=== PATIENT | female | born 1990 | race Caucasian/White ===

== ENCOUNTER 2018-03-30 13:06 | Emergency (ER) | END 2018-03-30 15:10 | disposition left against medical advice (07) ==

== ENCOUNTER 2018-11-11 14:11 | Inpatient (IN) | payer OTHER ==
[~2018-11-11] VITALS: Ht 157.5 cm; Wt 74.4 kg
[~2018-11-11 14:11] MED LIST: FOLI0.4T2 PO; PREN1TAB71 PO
[2018-11-17] MEDS ORDERED: OXYTOCIN 30 UNITS/LR 500 ML IV PRN (14:30)
[2018-11-17] MEDS ORDERED: LIDOCAINE 1% (MPF) 30 ML INJ INJ PRN (14:30)
[2018-11-17] MEDS ORDERED: METHYLERGONOVINE 0.2 MG INJ IM PRN (14:30)
[2018-11-17] MEDS ORDERED: MISOPROSTOL 200 MCG TAB PR PRN (14:30)
[2018-11-17] MEDS ORDERED: BUTORPHANOL 2 MG INJ IV PRN (14:30)
[2018-11-17] MEDS ORDERED: IBUPROFEN 600 MG TAB PO PRN (14:30)
[2018-11-17] MEDS ORDERED: OXYTOCIN 30 UNITS/LR 500 ML IV SCH ×2 (14:30)
[2018-11-17] MEDS ORDERED: OXYCODONE/ACETAMINOPHEN (5/325) TAB PO PRN (14:30)
[2018-11-17] MEDS ORDERED: CARBOPROST 250 MCG INJ IM PRN (14:30)
[2018-11-17 15:13] VITALS: Ht 157.5 cm; Wt 74.4 kg
[2018-11-17] MEDS: LACTATED RINGER'S 1,000 ML IV SCH (15:15)
[2018-11-17] MEDS ORDERED: CLINDAMYCIN 900 MG/D5W (PMX) 50 ML IVPB SCH (16:00)
[2018-11-17] MEDS: MISOPROSTOL 50 MCG CAPSULE PO SCH ×3 (16:41→21:00)
[2018-11-17] MEDS: VANCOMYCIN 1 GM (PMX) 250 ML IVPB SCH (17:44)
[2018-11-17] MEDS ORDERED: MINERAL OIL LIGHT 10 ML VIAL TOP PRN (20:00)
[2018-11-18] MEDS: LACTATED RINGER'S 1,000 ML IV SCH ×4 (00:57→14:47)
[2018-11-18] MEDS: VANCOMYCIN 1 GM (PMX) 250 ML IVPB SCH ×2 (05:07→17:00)
[2018-11-18] MEDS ORDERED: OXYTOCIN 30 UNITS/LR 500 ML IV SCH ×2 (05:30→17:35)
[2018-11-18] MEDS ORDERED: FENTAnyl 2MCG/ML-ROPIV 0.2% 100 ML ONE (12:15)
--- NOTE | 2018-11-18 12:24 | PREAC ---
Date/Time of Note Date/Time of Note DATE: 11/18/18 TIME: 12:23 Anesthesia Eval and Record Evaluation Time Pre-Procedure Interview DATE: 11/18/18 TIME: 12:23 Age 28 Sex female NPO: 8 hrs Preoperative diagnosis labor pain Planned procedure labor Epidural Past Medical History Past Medical History: Includes Heme: Anemia : : (5), Para: (3), Gestational age: (40) Surgery & Anesthesia Issues No known issue Meds Anticoagulation: No Beta Raimundo within 24 hr: No Reason Beta Raimundo not given: Pt. not on B-Raimundo Reported Medications Folic Acid* (Folic Acid*) 0.4 Mg Tablet, 0.4 MG PO DAILY, TAB 11/03/18 Vit No.130/Iron/FA ( Tablet) 1 Each Tablet, 1 EACH PO d 11/03/18 Current Medications Lactated Ringer's 1,000 ml @ 125 mls/hr Q8H IV Last administered on 11/18/18at 12:15; Admin Dose 125 MLS/HR; Start 11/17/18 at 14:27 Butorphanol Tartrate (Stadol) 2 mg Q2H PRN IV .PAIN; Start 11/17/18 at 14:30 Lidocaine (Xylocaine 1% (Mpf)) 30 ml ONCE PRN INJ .EPISIOTOMY; Start 11/17/18 at 14:30 Oxytocin/Lactated Ringer's 500 ml @ 500 mls/hr ONCE POST IV ; Start 11/17/18 at 14:30 Oxytocin/Lactated Ringer's 500 ml @ 125 mls/hr POST IV ; Start 11/17/18 at 14:30 Ibuprofen (Motrin) 600 mg ONCE PRN PO .PAIN 1-5; Start 11/17/18 at 14:30 Oxycodone/ Acetaminophen (Percocet (5/ 325)) 2 tab ONCE PRN PO .PAIN 6-10; Start 11/17/18 at 14:30 Oxytocin/Lactated Ringer's 500 ml @ 0 mls/hr ONCE PRN IV .VAGINAL BLEEDING; Start 11/17/18 at 14:30 Methylergonovine Maleate (Methergine) 0.2 mg ONCE PRN IM .VAGINAL BLEEDING; Start 11/17/18 at 14:30 Carboprost Tromethamine (Hemabate) 250 mcg ONCE PRN IM .VAGINAL BLEEDING; Start 11/17/18 at 14:30 Misoprostol (Cytotec) 1,000 mcg ONCE PRN LA .VAGINAL BLEEDING; Start 11/17/18 at 14:30 Vancomycin HCl 250 ml @ 125 mls/hr Q12H IVPB Last administered on 11/18/18at 05:07; Admin Dose 125 MLS/HR; Start 11/17/18 at 17:00 Mineral Oil (Muri-Lube) 10 ml ONCE PRN TOP DELIVERY; Start 11/17/18 at 20:00; Stop 11/18/18 at 19:59 Oxytocin/Lactated Ringer's 500 ml @ 0 mls/hr FOR AUGMENTATION IV Last ad ministered on 11/18/18at 05:50; Admin Dose 2 MLS/HR; Start 11/18/18 at 05:30 Meds reviewed: Yes Allergies Coded Allergies: No Known Drug Allergy (Verified Allergy, Unknown, 03/30/18) Penicillins (Verified Allergy, Unknown, 11/03/18) Allergies Reviewed: Yes Labs/Studies Labs Reviewed: Reviewed by anesthesiologist Result Diagram: 11/17/18 1500 Laboratory Tests 11/17/18 15:00 Blood Bank Test 11/17/18 15:00 Antibody Screen NEGATIVE Blood Type O POSITIVE Rh Immune Globulin Candidate NO test: Positive Studies: ECG (n/a), CXR (n/a) Pre-procedure Exam Airway: Adequate mouth opening, Adequate thyromental dist Mallampati: Mallampati II Teeth: Normal Lung: Normal Heart: Normal ASA Physical Status ASA physical status: 2 Emergency: None Planned Anesthetic Neuraxial: Epidural Planned Pain Management Epidural Pre-operative Attestations Prior to commencing anesthesia and surgery, the patient was re-evaluated, there was verification of: *The patient's identity *The results of appropriate recent lab work and preoperative vital signs *The above evaluation not changing prior to induction *Anesthetic plan, risk benefits, alternative and complications discussed with patient/family; questions answered; patient/family understands, accepts and wishes to proceed. ASHLEE CHAVARRIA MD Nov 18, 2018 12:24
--- NOTE | 2018-11-18 12:25 | PAC ---
Date/Time of Note Date/Time of Note DATE: 11/18/18 TIME: 12:25 Post-Anesthesia Notes Post-Anesthesia Note Last documented vital signs T: 98.0 Activity: WNL Respiratory function: WNL Cardiovascular function: WNL Mental status: Baseline Pain reasonably controlled: Yes Hydration appropriate: Yes Nausea/Vomiting absent: Yes ASHLEE CHAVARRIA MD Nov 18, 2018 12:25
[2018-11-18] MEDS ORDERED: NALOXONE (0.4 MG/ML) INJ IV PRN (12:30)
[2018-11-18] MEDS ORDERED: FENTAnyl 2MCG/ML-ROPIV 0.2% 100 ML BAG EPI SCH (12:30)
[2018-11-18] MEDS ORDERED: MINERAL OIL LIGHT 10 ML VIAL TOP ONE (17:00)
--- NOTE | 2018-11-18 17:35 | LDN ---
Date/Time of Note Date/Time of Note DATE: 11/18/18 TIME: 17:34 Delivery Summary Weeks of Gestation 41 Placenta Delivered: Manually, Intact & Complete Meconium: none Episiotomy: No Estimated blood loss: 150 Sponge & Needle done & correct: Yes All needle counts correct: Yes Any foreign bodies felt in the: No Delivery Information Sex Sex: female Apgars 1 Minute: 8 5 Minute: 9 Suctioning Nose & mouth suctioned at shiva: No Delee suction performed: No Umbilical Cord Umbilical cord with: 3 Vessels Cord presentations: no nuchal cord Cord Blood was obtained: Yes RADHA LARA MD Nov 18, 2018 17:35
--- NOTE | 2018-11-18 17:54 | PREOPHP ---
DATE OF ADMISSION: 11/17/2018 HISTORY OF PRESENT ILLNESS: Ms. Shonna Lerma is a 28-year-old 5, para 3, EDC 10/06/2018 intra uterine at 41 weeks gestational age, admitted yesterday for post-EDC induction with Pitocin side effect. She denies any contractions, vaginal bleeding or discharge. Her care took pl samira at [facility]. PAST MEDICAL HISTORY: None. ALLERGIES: PENICILLIN. MEDICATIONS: vitamins. PAST SURGICAL HISTORY: None. OBSTETRICAL HISTORY: x3 vaginal delivery, x1 missed AB. GYNECOLOGIC HISTORY: 12, regular 3 to 4 days. Denies any sexually transmitted disease. Sexually ac tive with 1 partner. SOCIAL HISTORY: Denies any smoking, drugs or alcohol. FAMILY HISTORY: None. REVIEW OF SYSTEMS: All within normal except history of present illness. PHYSICAL EXAMINATION: HEENT: Within normal. LUNGS: CTA bilateral. CARDIOVASCULAR: S1, S2. Regular rate, rhythm. ABDOMEN: Gravid, nontender. Negative CVA bilateral. EXTREMITIES: Negative calf tenderness. PELVIC: Vaginal exam on admission: 1 cm, 50% effaced, -2 station. heart tracing category 1. [place]: Occasional contractions. ASSESSMENT: Intrauterine at 41 weeks gestational age, admitted for post-expected date of c onfinement induction. PLAN: Cytotec followed by Pitocin. GBS prophylaxis. Dictated By: RADHA SEALS/VALERIA Conf#: [id number] DID#: [id number]
[2018-11-18] MEDS ORDERED: NACL 0.9% 3 ML SYG IV SCH (18:00)
[2018-11-18] MEDS ORDERED: ONDANSETRON 4 MG INJ IV PRN (18:00)
[2018-11-18] MEDS ORDERED: LANOLIN HPA 1 PKT TOP PRN (18:00)
[2018-11-18] MEDS ORDERED: SENNA/DOCUSATE NA (8.6MG/50MG) TAB PO PRN (18:00)
[2018-11-18] MEDS ORDERED: METHYLERGONOVINE 0.2 MG INJ IM PRN (18:00)
[2018-11-18] MEDS ORDERED: MISOPROSTOL 200 MCG TAB PR PRN (18:00)
[2018-11-18] MEDS ORDERED: BENZOCAINE 20% 56 ML SPRAY TOP PRN (18:00)
[2018-11-18] MEDS ORDERED: OXYCODONE/ASPIRIN (4.88/325) TAB PO PRN ×2 (18:00)
[2018-11-18] MEDS ORDERED: ACETAMINOPHEN 325 MG TAB PO PRN (18:00)
[2018-11-18] MEDS ORDERED: CARBOPROST 250 MCG INJ IM PRN (18:00)
[2018-11-18] MEDS ORDERED: OXYTOCIN 30 UNITS/LR 500 ML IV PRN (18:00)
[2018-11-18] MEDS: IBUPROFEN 600 MG TAB PO SCH (18:06)
[2018-11-18 19:40] VITALS: BP 126/68; PULSE 62; RESP 19
[2018-11-18 20:05] VITALS: BP 130/70; PULSE 60; RESP 20
[2018-11-18 20:30] VITALS: BP 130/70; PULSE 55; RESP 18
[2018-11-18] MEDS: SENNA/DOCUSATE NA (8.6MG/50MG) TAB PO SCH (21:06)
[2018-11-18] MEDS: WITCH HAZEL/GLYCERIN PAD PR PRN (21:06)
[2018-11-18 22:30] VITALS: BP 118/69; PULSE 68; RESP 18
[2018-11-19] MEDS: IBUPROFEN 600 MG TAB PO SCH ×5 (00:25→23:59)
[2018-11-19 03:40] VITALS: BP 107/53; PULSE 70; RESP 18
[2018-11-19 07:40] VITALS: BP 111/58; PULSE 57; RESP 16
[2018-11-19] MEDS: SENNA/DOCUSATE NA (8.6MG/50MG) TAB PO SCH ×2 (08:56→21:38)
[2018-11-19 16:09] VITALS: BP 122/58; PULSE 65; RESP 18
[2018-11-19 20:10] VITALS: BP 133/64; PULSE 54; RESP 16
[2018-11-20 04:20] VITALS: BP 123/70; PULSE 52; RESP 16
[2018-11-20] MEDS: IBUPROFEN 600 MG TAB PO SCH ×3 (06:19→17:26)
[2018-11-20 08:15] VITALS: BP 115/60; PULSE 72; RESP 19
[2018-11-20] MEDS: WITCH HAZEL/GLYCERIN PAD PR PRN (10:01)
[2018-11-20] MEDS: SENNA/DOCUSATE NA (8.6MG/50MG) TAB PO SCH (10:02)
[2018-11-20 16:42] VITALS: BP 129/75; PULSE 54; RESP 16
--- NOTE | 2018-11-20 18:01 | PN ---
Date/Time of Note Date/Time of Note DATE: 11/20/18 TIME: 17:58 OB Subjective Subjective Subjective . Denies any complaint. Ambulating. Breast-feeding. Decreased vaginal bleeding. OB Objective Objective Objective General appearance: Alert and oriented x4 does not appear to be in any acute distress Abdomen: Soft, no tenderness, no rebound tenderness, fundus firm and palpable below the umbilicus and nontender Extremities: Bilateral 2+ symmetric edema, no cord palpable, negative Homans sign VS - Last 72 Hours, by Label Date Temp Pulse Resp B/P (MAP) Pulse Ox O2 O2 Flow FiO2 Time Delivery Rate 11/20/18 97.8 54 16 129/75 Room Air 16:42 (93) 11/20/18 98.3 72 19 115/60 Room Air 08:15 (78) 11/20/18 97.9 52 16 123/70 Room Air 04:20 (87) 11/19/18 97.9 54 16 133/64 Room Air 20:10 (87) 11/19/18 98.1 65 18 122/58 Room Air 16:09 (79) 11/19/18 97.0 57 16 111/58 Room Air 07:40 (75) 11/19/18 98.2 70 18 107/53 Room Air 03:40 (71) 11/18/18 98.0 68 18 118/69 Room Air 22:30 (85) 11/18/18 98.0 55 18 130/70 Room Air 20:30 (90) 11/18/18 98.0 60 20 130/70 Room Air 20:05 (90) 11/18/18 98.7 62 19 126/68 Room Air 19:40 (87) CBC & BMP 11/19/18 06:04 OB Assessment/Plan Other Assessment: Status post induction at 41 weeks for postdates Doing well Post day #2 Doing well DC home today Follow-up at 6 weeks with primary OB office or sooner as needed CHICO NICHOLAS MD Nov 20, 2018 18:01
--- NOTE | 2018-11-20 18:05 | DS ---
Date/Time of Note Date/Time of Note DATE: 11/20/18 TIME: 18:04 Obstetrical Discharge Record Final Diagnosis Final Diagnosis: Term delivered Vaginal Delivery Obstetrical Delivery: Spontaneous Other Delivery information Status post induction at 41 weeks Complications Augmentation: No Induction: Yes Rupture of Membranes: No Condition on Discharge Physical Assessment Voiding: Yes Bowel Movement: Yes Breast: Soft, non-tender Fundus: Firm Abdomen and Incision: Nontender, fundus palpable and firm and below the umbilicus Calf Tenderness: No Patient Condition: Good CHICO NICHOLAS MD Nov 20, 2018 18:05
== END 2018-11-20 17:50 | disposition home or self-care (01) | DRG 807 ==
LOC: EDSTATUS 14:11 → L-D 11-17 14:15 → PP1 11-18 20:05
PROVIDERS: ADMIT Obstetrics & Gynecology; ATTEND Obstetrics & Gynecology
PROC: 10E0XZZ Delivery of Products of Conception, External Approach (ICD-10-PCS; principal; 2018-11-18)
PROC: 3E033VJ Introduction of Other Hormone into Peripheral Vein, Percutaneous Approach (ICD-10-PCS; 2018-11-18)
DX: O48.0 Post-term pregnancy (principal); Z37.0 Single live birth; Z3A.41 41 weeks gestation of pregnancy
CPT/HCPCS: 62319; 76815; 82565; 84520; 85025; 85610; 85730; 86592; 86850; 86900; 86901; 99464; J2590; J3010; J3370; J7120

== ENCOUNTER 2019-05-12 16:16 | Emergency (ER) | payer OTHER ==
[~2019-05-12] VITALS: Ht 154.9 cm; Wt 65.4 kg
[~2019-05-12 16:16] MED LIST changes: +CYCL10TA7 PO; +HYDR-4011 PO; +NAPR-985 PO
[2019-05-12 16:27] VITALS: BP 110/57; PULSE 69; RESP 16; Ht 154.9 cm; Wt 65.4 kg
[2019-05-12] MEDS ORDERED: IBUPROFEN 800 MG TAB PO ONE (17:00)
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
== END 2019-05-12 18:09 | disposition home or self-care (01) ==
LOC: FTE 16:16
DX: M54.6 Pain in thoracic spine (principal)
CPT/HCPCS: 72072; 81025; Z7502; Z7610